=== PATIENT | male | born 1945 | race Caucasian/White ===

== ENCOUNTER → 2020-10-10 | Outpatient (CLI) | payer MEDICARE ==
--- NOTE | 2020-10-10 13:02 | MR ---
EXAMINATION TYPE: MR knee LT wo con DATE OF EXAM: 10/10/2020 COMPARISON: 09/16/2020 left knee HISTORY: Left knee pain TECHNIQUE: Multiplanar, multisequence imaging of the lefy knee is performed without IV contrast. FINDINGS: MEDIAL MENISCUS: There is a macerated medial meniscal tear with extensive adjacent cystic changes. LATERAL MENISCUS: There is an oblique tear of the posterior horn and body of the lateral meniscus. CRUCIATE LIGAMENTS: The anterior cruciate ligament is completely torn. The posterior cruciate ligamen t is intact. COLLATERAL LIGAMENTS: The medial collateral ligament and lateral collateral ligament complex are inta ct and unremarkable. EXTENSOR MECHANISM: Visualized quadriceps and patellar tendons are intact. EFFUSION: No significant suprapatellar joint effusion. POPLITEAL CYST: No popliteal/garcia cyst. CARTILAGE: There are full-thickness articular cartilage defects of the medial femoral condyle and med ial tibial plateau (grade 4) with subchondral marrow edema. There are partial-thickness articular car tilage defects of the lateral femoral condyle and lateral tibial plateau (grade is 2-3). There are pa rtial-thickness articular cartilage defects of the patella (grade 2). BONE MARROW SIGNAL: No focal abnormal marrow signal is appreciated. OTHER: No additional significant abnormality is appreciated. IMPRESSION: 1. Complete anterior cruciate ligament tear. 2. Macerated medial meniscal tear with adjacent cystic changes. 3. Oblique tear of the posterior horn and body of the lateral meniscus. 4. Tricompartmental articular cartilage defects.
== END | disposition home or self-care (01) ==
LOC: RADMRIMAIN 11:00
PROVIDERS: ATTEND Orthopaedic Surgery
DX: S83.512A Sprain of anterior cruciate ligament of left knee, initial encounter (principal); M23.332 Other meniscus derangements, other medial meniscus, left knee; M23.362 Other meniscus derangements, other lateral meniscus, left knee; M23.92 Unspecified internal derangement of left knee

== ENCOUNTER → 2020-11-10 | Outpatient (CLI) | payer MEDICARE ==
[2020-11-10 10:45] LABS: Basophils # (A) 0.1 k/uL (0-0.2); Basophils % (A) 1 %; Eosinophils # (A) 0.3 k/uL (0-0.7); Eosinophils % (A) 5 %; HGB 18.3 gm/dL (13.0-17.5); Lymphocytes # (A) 1.6 k/uL (1.0-4.8); Lymphocytes % (A) 23 %; MCH 30.8 pg (25.0-35.0); MCHC 32.4 g/dL (31.0-37.0); Mean Platelet Volume 6.8; Monocytes # (A) 0.5 k/uL (0-1.0); Monocytes % (A) 7 %; Neutrophils # (A) 4.2 k/uL (1.3-7.7); Neutrophils % (A) 62 %; Platelet Count 194 k/uL (150-450); RBC 5.95 m/uL (4.30-5.90); RDW 15.2 % (11.5-15.5); WBC 6.8 k/uL (3.8-10.6)
[2020-11-10 10:48] LABS: HCT 56.6 % (39.0-53.0)
[2020-11-10 10:56] LABS: Potassium 4.4 mmol/L (3.5-5.1)
== END | disposition home or self-care (01) ==
LOC: LABWHC1 09:46
PROVIDERS: ATTEND Orthopaedic Surgery
DX: Z01.818 Encounter for other preprocedural examination (principal); M23.92 Unspecified internal derangement of left knee
CPT/HCPCS: 36415; 80051; 85025; 93005

== ENCOUNTER 2020-11-13 08:35 | Day surgery (SDC) | payer MEDICARE ==
[2020-11-11 09:16] VITALS: BMI 28.3
--- NOTE | 2020-11-12 21:22 | HP ---
HISTORY AND PHYSICAL REASON FOR ADMISSION: Surgery scheduled for 11/13/2020 HISTORY OF PRESENT ILLNESS: Jermain Miller is a 75-year-old gentleman seen with progressive left knee pain. We discussed options for treatment. He elected to proceed with arthroscopy. Consent was obtained. PAST MEDICAL HISTORY: Noncontributory. SURGICAL HISTORY: Left knee arthroscopy. MEDICATIONS: Vitamins. ALLERGIES: DOXYCYCLINE. SOCIAL HISTORY: Denies tobacco use. PHYSICAL EVALUATION OF THE LEFT KNEE: Range of motion is -2/3-130. Mild effusion. Tenderness medial joint line. Positive medial Tono's. Ligaments stable. Hip rotation without pain. Distal neurovascular exam is intact. RADIOGRAPHS: Left knee radiographs revealed moderate osteoarthritis. Left knee MRI revealed medial and lateral meniscal tears, ACL tear, and osteoarthritic changes. IMPRESSION: 1. Internal derangement of left knee with medial and lateral meniscal tears. 2. Left knee ACL tear. PLAN: Left knee arthroscopy with partial meniscectomy and debridement. Surgery scheduled for 11/13/2020. MMODL / IJN: [id number] /
[~2020-11-13 08:35] MED LIST: DEXAMETHASONE SOD PHOSPHATE 4 MG/ML 1 ML VIAL IV ONE; HYDROmorphone 0.5 MG/0.5 ML SYRINGE IVP PRN; MIDAZOLAM 2 MG/2 ML VIAL IV PRN; ONDANSETRON 4 MG/2 ML VIAL IVP ONE
[2020-11-13 09:04] VITALS: RESP 16
[2020-11-13] MEDS: LACTATED RINGERS 1,000 ML IV SCH ×2 (09:13→10:49)
[2020-11-13] MEDS ORDERED: MIDAZOLAM 2 MG/2 ML VIAL ONE (10:49)
[2020-11-13] MEDS ORDERED: LIDOCAINE 1% INJ 10MG/ML (20 ML MDV) ONE (10:49)
[2020-11-13] MEDS ORDERED: SUCCINYLCHOLINE CHLORIDE 100 MG/5 ML SYR IV ONE (10:49)
[2020-11-13] MEDS ORDERED: fentaNYL (PF) 50 MCG/ML 2 ML AMP ONE (10:49)
[2020-11-13] MEDS ORDERED: KETOROLAC 15 MG/ML 1 ML VIAL ONE (10:49)
[2020-11-13] MEDS ORDERED: PROPOFOL 10 MG/ML 20 ML VIAL IV ONE (10:49)
[2020-11-13] MEDS ORDERED: BUPIVACAINE (PF) 0.25% 30 ML VIAL SQ ONE (11:10)
[2020-11-13] MEDS ORDERED: LACTATED RINGERS 1,000 ML IV ONE (11:36)
--- NOTE | 2020-11-13 11:45 | P.OP ---
Date of Procedure: 11/13/20 Preoperative Diagnosis: Internal derangement left knee Postoperative Diagnosis: 1. Tear medial meniscus left knee 2. ACL tear left knee 3. Reactive synovitis medial, lateral and suprapatellar compartments left knee 4. 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 Arthroscopic partial medial meniscectomy left knee 2. Arthroscopic debridement ACL tear left knee 3. Arthroscopic partial synovectomy medial, lateral and suprapatellar compartments left knee Anesthesia: GETA, local Surgeon: Ashwin Hoffman Estimated Blood Loss (ml): 7 Pathology: none sent Condition: stable Disposition: PACU Indications for Procedure: 75-year-old patient seen with progressive left knee pain. After having treatment options discussed, he elected to proceed with arthroscopy. Operative Findings: See description of procedure Description of Procedure: Patient was taken to the operative suite. Patient underwent a general anesthetic by the department of anesthesia. Patient was given preoperative anti biotics. The left lower extremity was placed in a well-padded arthroscopic leg bess. The left leg was prepped and draped in the normal sterile orthopedic fashion. A lateral parapatellar and suprapatellar incision was made. Trochars were inserted. Arthroscopy was initiated. Suprapatellar pouch revealed diffuse thick reactive synovitis. The patellofemoral joint appeared to articulate congruently. There was grade 2/3 chondromalacia of the patella with no osteochondral tears present. The scope was guided into the medial gutter. No loose bodies or plica were identified. The scope was then guided into the medial compartment. A medial parapatellar incision was made. Trocar inserted followed by probe. There was a complex tear involving the posterior horn and midbody medial meniscus. There were grade 4 chondromalacia changes of the medial femoral condyle and tibial plateau with exposed bone on both sides([id number] arthritis). There was thick reactive synovitis anteriorly. I performed a partial medial meniscectomy getting down to stable meniscal tissue. I performed a partial synovectomy decompressing the thick reactive synovitis. The residual meniscus was probed and it was found to be stable. There was good decompression of synovitis. Scope and probe were then guided into the intercondylar notch. There was an ACL tear present. It appeared to be degenerative. I introduced a motorized shaver and debrided that out. The PCL was probed and found to be stable.. The scope and probe were then guided into lateral compartment. The lateral meniscus revealed some mild superficial fraying. There were grade 1/2 chondromalacia changes of the lateral compartment with no tears. There was thick reactive synovitis anteriorly. I introduced a motorized shaver and debrided out the superficial fraying of the lateral meniscus. I now performed a partial synovectomy decompressing the thick reactive synovitis. The shaver was removed. There was good decompression of the synovitis. The scope was in guided back into the suprapatellar compartment. I introduced a motorized shaver into the suprapatellar compartment. I debrided some piecemeal fragments of meniscus I encountered. I performed a partial synovectomy. Shaver was removed. There was good decompression of the synovitis. Instruments were now removed from the joint. The joint was infiltrated with .25% Marcaine. Steri-Strips were applied to the portal sites. Sterile dressings were applied. The patient was placed into a ZOILA hose. No tourniquet was utilized. The patient was awakened, transferred to a bed and taken to recovery stable satisfactory condition.
[2020-11-13 11:48] VITALS: TEMP 96.8
[2020-11-13] MEDS ORDERED: traMADol 50 MG TAB PO ONE (13:11)
[2020-11-13] MEDS ORDERED: traMADol 50 MG TAB ONE (13:11)
[2020-11-13 13:51] VITALS: BP 141/86; PULSE 75
== END 2020-11-13 13:51 | disposition home or self-care (01) ==
LOC: OR 08:35
PROVIDERS: ATTEND Orthopaedic Surgery
DX: S83.242A Other tear of medial meniscus, current injury, left knee, initial encounter (principal); S83.512A Sprain of anterior cruciate ligament of left knee, initial encounter; Z88.1 Allergy status to other antibiotic agents; T75.3XXA Motion sickness, initial encounter
CPT/HCPCS: 29876; 29881; J2250; J1100; J2405; J2001; J3010; J1885; J0330; J2704

== ENCOUNTER 2022-06-16 11:58 | Inpatient (IN) | payer MEDICARE ==
--- NOTE | 2022-06-16 12:51 | ED ---
Abdominal Pain HPI - General Chief Complaint: Abdominal Pain Stated Complaint: constipated, abd pain Time Seen by Provider: 06/16/22 12:25 Source: patient, family (spouse), RN notes reviewed Mode of arrival: ambulatory Limitations: no limitations - History of Present Illness Initial Comments: Patient is a 69-year-old male presenting to the emergency room with complaints of abdominal pain that has been intermittent in nature ongoing for at least 2 days possibly longer. He reports having nausea with vomiting. His last episode of vomiting was yesterday. He states that he has been constipated and taking laxatives for his constipation which is resulting in liquid stool which he believes is coming out around solid stool that is constipated. He was evaluated yesterday at urgent care and urgent care encouraged him to present to the emergency room for further evaluation. He denies any other complaints or concerns including any chest pain, shortness of breath, bladder mucus in his vomit or stool, headache, dizziness, fevers or chills.His only significant past medical history is for osteoarthritis which she takes tramadol as needed for. - Related Data Home Medications Medication Instructions Recorded Confirmed Multivitamins, Thera [Multivitamin 1 tab PO DAILY 11/11/20 06/16/22 (formulary)] Maxivision 1 tab PO DAILY 06/16/22 06/16/22 Allergies Allergy/AdvReac Type Severity Reaction Status Date / Time doxycycline Allergy Swelling Verified 06/16/22 12:53 Penicillins Allergy Unknown Verified 06/16/22 12:53 Review of Systems ROS Statement: Those systems with pertinent positive or pertinent negative responses have been documented in the HPI. ROS Other: All systems not noted in ROS Statement are negative. Past Medical History Past Medical History: Osteoarthritis (OA) History of Any Multi-Drug Resistant Organisms: None Reported Past Surgical History: No Surgical Hx Reported Past Psychological History: No Psychological Hx Reported Smoking Status: Never smoker Past Alcohol Use History: None Reported Past Drug Use History: None Reported General Exam - General Exam Comments Initial Comments: GENERAL: No acute distress, well developed, well nourished. HEENT: Normocephalic, atraumatic. Pupils equal, round, reactive to light. Moist mucous membranes. LUNGS: No respiratory distress. Clear to auscultation, no adventitious sounds, no use of accessory muscles. HEART: Regular rate and rhythm without murmur, rub, or gallop. ABDOMEN: Normal bowel sounds. Soft, non-distended, rounded abdomen. Mild tender ness bilateral upper quadrants no tenderness lower quadrants. No guarding or rebound tenderness. BACK: Normal inspection. EXTREMITIES: No edema. No tenderness. Moves all extremities. NEUROLOGIC: Alert & oriented x 3. CN II-XII grossly intact. PSYCHIATRIC: Normal affect and behavior. DERMATOLOGIC: Skin intact, without rashes or lesions noted. Limitations: no limitations Course Vital Signs 06/16/22 12:09 Temperature 97.5 F L Pulse Rate 94 Respiratory 20 Rate Blood Pressure 165/99 O2 Sat by Pulse 95 Oximetry Medical Decision Making - Medical Decision Making Was pt. sent in by a medical professional or institution (, PA, CARDIAC CATHETERIZATION TECHNOLOGIST, urgent care, hospital, or residential...) When possible be specific @ -No Did you speak to anyone other than the patient for history (EMS, parent, family, police, friend...)? What history was obtained from this source @ -Spouse Did you review nursing and triage notes (agree or disagree)? Why? @ -I reviewed and agree with nursing and triage notes Were old charts reviewed (outside hosp., previous admission, EMS record, old EKG, old radiological studies, urgent care reports/EKG's, residential records)? Report findings @ -Yes, I reviewed previous H&P on file from 2018 Differential Diagnosis (chest pain, altered mental status, abdominal pain women, abdominal pain men, vaginal bleeding, weakness, fever, dyspnea, syncope, headache, dizziness, GI bleed, back pain, seizure, CVA, palpatations, mental health, musculoskeletal)? @ -Differential Abdominal Pain Men: Appendicitis, cholecystitis, diverticulosis, ischemic bowel, pancreatitis, hepatitis, UTI, gastroenteritis, AAA, incarcerated hernia, bowel obstruction, constipation, inflammatory bowel, hepatitis, peptic ulcer disease, splenic infarction, perforated viscus, testicular torsion, this is not meant to be an all-inclusive list EKG interpreted by me (3pts min.). @ -None done X-rays interpreted by me (1pt min.). @ -KUB: prominent bowel loops concerning for dilatation indicating ileus versus partial small bowel obstruction. CT interpreted by me (1pt min.). @ -computed tomography scan abdomen and pelvis without contrast: large right renal cysts, hydronephrosis to right kidney with right ureter calculi. No evidence of bowel obstruction free air or free fluid in the abdomen. U/S interpreted by me (1pt. min.). @ -None done What testing was considered but not performed or refused? (CT, X-rays, U/S, labs )? Why? @ -None What meds were considered but not given or refused? Why? @ -Anti-medics offered but declined reports nausea stable at this time Did you discuss the management of the patient with other professionals (radu [place]is i.e. , PA, CARDIAC CATHETERIZATION TECHNOLOGIST, lab, RT, psych nurse, social studies teacher, veterinary radiologist, teacher, housing officer, rn field case manager)? Give summary @ -yes, spoke with Dr. Jenn stout for urology in regards to obstructive hydronephrosis along with large renal cyst with masslike effect. He advised admission to medicine with cough consult to urology and he will see patient in morning. Spoke with Dr. Haley stout for [place] physicians in regards to Dr. Valdez's recommendation for admission to medicine for further evaluation and treatment for AK I and obstructive nephrolithiasis. He is accepting of admission and declines any further orders at this time. Was smoking cessation discussed for >3mins.? @ -No Was critical care preformed (if so, how long)? @ -No Were there social determinants of health that impacted care today? How? (Homelessness, low income, unemployed, alcoholism, drug addiction, transportation, low edu. Level, literacy, decrease access to med. care, [facility], rehab)? @ -No Was there de-escalation of care discussed even if they declined (Discuss DNR or withdrawal of care, Hospice)? DNR status @ -No What co-morbidities impacted this encounter? (DM, HTN, Smoking, COPD, CAD, Cancer, CVA, ARF, Chemo, Hep., AIDS, mental health diagnosis, sleep apnea, morbid obesity)? @ -Osteoarthritis on pain medication Was patient admitted / discharged? Hospital course, mention meds given and rout e, prescriptions, significant lab abnormalities, going to OR and other pertinent info. @ -77-year-old male presenting to the emergency room with intermittent abdominal pain ongoing for 2 days with occasional nausea and vomiting along with diarrhea around constipated stool. Will obtain KUB to evaluate stool burden if evidence of stool impaction/constipation determined will proceed accordingly. KUB demonstrated elevated dilatation concerning for partial small bowel obstruction versus ileus. Will proceed with obtaining laboratory studies along with computed tomography scan of the abdomen. Laboratory studies CBC demonstrates elevated neutrophil 9.0 WBC high normal at 10.6 which is above his baseline normal hemoglobin CMP demonstrates elevated BUN and creatinine unknown baseline per patient is typically normal. BUN 37 creatinine 1.26 electrolytes normal AST ALT and alkaline phosphate normal lactic acid normal 1.4 bilirubin, 1.2 glucose slightly elevated 118. Due to elevation and BUN and creatinine will change computed tomography scan from with contrast 2 without and give 1 L fluid bolus. Will keep nothing by mouth. Computed tomography scan reveals a large right renal cysts and mild right hydronephrosis. No free air in abdomen or evidence of bowel obstruction. In the setting of pain with GRIFFIN and hydronephrosis with obstructing renal calculi spoke with urology who advised admission to medical team with urology consult and he would be seen in morning by urology. discussed about findings with patient and spouse at length. Questions and concerns answered. Spoke with Dr. De Leon on for [facility] regarding urology's recommendation for admission and treatment of obstructive uropathy. There excepting of admission and had no further orders at this time. will admit patient in stable condition to medical surgical unit with urology consult under [facility] for further evaluation and treatment for obstructive renal calculi with mild hydronephrosis. Undiagnosed new problem with uncertain prognosis? @ -No Drug Therapy requiring intensive monitoring for toxicity (Heparin, Nitro, Insuli n, Cardizem)? @ -No Were any procedures done? @ -No Diagnosis/symptom? @ -hydronephrosis with obstructed right ureter urinary stone and mild GRIFFIN Acute, or Chronic, or Acute on Chronic? @ -acute Uncomplicated (without systemic symptoms) or Complicated (systemic symptoms)? @ -Uncomplicated Side effects of treatment? @ -No Exacerbation, Progression, or Severe Exacerbation? @ -No Poses a threat to life or bodily function? How? (Chest pain, USA, ME, pneumonia, PE, COPD, DKA, ARF, appy, cholecystitis, CVA, Diverticulitis, Homicidal, S uicidal, threat to staff... and all critical care pts) @ -yes. Case discussed with Dr. Bradley. - Lab Data Result diagrams: 06/16/22 14:05 06/16/22 14:05 Lab Results 06/16/22 06/16/2206/16/23 Range/Units 14:05 14:05 14:05 WBC 10.6 (3.8-10.6) k/uL RBC 5.82 (4.30-5.90) m/uL Hgb 17.3 (13.0-17.5) gm/dL Hct 51.0 (39.0-53.0) % MCV 87.6 (80.0-100.0) fL MCH 29.7 (25.0-35.0) pg MCHC 33.9 (31.0-37.0) g/dL RDW 14.8 (11.5-15.5) % Plt Count 186 (150-450) k/uL MPV 6.8 Neutrophils % 86 % Lymphocytes % 7 % Monocytes % 6 % Eosinophils % 0 % Basophils % 0 % Neutrophils # 9.0 H (1.3-7.7) k/uL Lymphocytes # 0.8 L (1.0-4.8) k/uL Monocytes # 0.6 (0-1.0) k/uL Eosinophils # 0.0 (0-0.7) k/uL Basophils # 0.0 (0-0.2) k/uL Sodium 139 (137-145) mmol/L Potassium 4.1 (3.5-5.1) mmol/L Chloride 101 (98-107) mmol/L Carbon Dioxide 29 (22-30) mmol/L Anion Gap 9 mmol/L BUN 37 H (9-20) mg/dL Creatinine 1.26 H (0.66-1.25) mg/dL Est GFR (CKD-EPI)AfAm 63 (>60 ml/min/1.73 sqM) Est GFR (CKD-EPI)NonAf 54 (>60 ml/min/1.73 sqM) Glucose 118 H (74-99) mg/dL Plasma Lactic Acid Shalom 1.4 (0.7-2.0) mmol/L Calcium 9.7 (8.4-10.2) mg/dL Total Bilirubin 1.2 (0.2-1.3) mg/dL AST 36 (17-59) U/L ALT 47 (4-49) U/L Alkaline Phosphatase 66 (38-126) U/L Total Protein 7.8 (6.3-8.2) g/dL Albumin 4.8 (3.5-5.0) g/dL Amylase 58 (30-110) U/L Lipase 40 (23-300) U/L Disposition Clinical Impression: Hydronephrosis with urinary obstruction due to renal calculus Disposition: ADMITTED IP TO THIS HOSP Condition: Stable Time of Disposition: 16:43
--- NOTE | 2022-06-16 12:58 | XR ---
EXAMINATION TYPE: XR KUB DATE OF EXAM: 06/16/2022 COMPARISON: NONE HISTORY: Pain TECHNIQUE: One view abdominal series FINDINGS: The osseous structures are intact. The bowel gas pattern is nonspecific. There are dilated bowel loo ps in the upper abdomen. Curvature of the spine with scoliosis and degenerative changes. Evidence of previous prostate procedure. Chronic appearing deformity of the right superior pubic ramus. Sclerosis nonspecific overlying the SI joint on the left suggestive of sacroiliitis. Nonspecific sclerosis rig ht sacrum. Lung bases are clear. IMPRESSION: 1. Nonspecific abdomen. A prominent or dilated bowel loops in the upper abdomen correlate for ileus or partial obstruction.
[2022-06-16 14:28] LABS: Albumin 4.8 g/dL (3.5-5.0); Calcium 9.7 mg/dL (8.4-10.2); Potassium 4.1 mmol/L (3.5-5.1); Total Bilirubin 1.2 mg/dL (0.2-1.3); Total Protein 7.8 g/dL (6.3-8.2)
[2022-06-16 14:40] LABS: Basophils % (A) 0 %; Eosinophils % (A) 0 %; HGB 17.3 gm/dL (13.0-17.5); Lymphocytes # (A) 0.8 k/uL (1.0-4.8); Lymphocytes % (A) 7 %; MCH 29.7 pg (25.0-35.0); MCHC 33.9 g/dL (31.0-37.0); MCV 87.6 fL (80.0-100.0); Mean Platelet Volume 6.8; Monocytes # (A) 0.6 k/uL (0-1.0); Monocytes % (A) 6 %; Neutrophils % (A) 86 %; Platelet Count 186 k/uL (150-450); RBC 5.82 m/uL (4.30-5.90); RDW 14.8 % (11.5-15.5); WBC 10.6 k/uL (3.8-10.6)
[2022-06-16] MEDS ORDERED: SODIUM CHLORIDE 0.9% 1,000 ML IV STA (14:52)
--- NOTE | 2022-06-16 15:45 | CT ---
EXAMINATION TYPE: CT abdomen pelvis wo con DATE OF EXAM: 06/16/2022 HISTORY: Bilateral flank pain. CT DLP: 980.4 mGycm. Automated Exposure Control for Dose Reduction was Utilized. TECHNIQUE: CT scan of the abdomen and pelvis is performed without oral or IV contrast. COMPARISON: NONE FINDINGS: Within the limitations of a non-contrast study, the following observations are made. LUNG BASES: No significant abnormality is appreciated. LIVER/GB: Liver is diffusely low dense consistent with diffuse fatty infiltration. There is 2.5 cm si mple appearing thin-walled cyst centrally in the liver axial image 34. Additional subcentimeter low d ense lesion axial image 34 is too small to further characterize but is presumed benign. PANCREAS: No significant abnormality is seen. SPLEEN: No significant abnormality is seen. ADRENALS: No significant abnormality is seen. KIDNEYS: No left-sided renal calculi or hydronephrosis. There is 2.0 cm simple appearing thin-walled cyst laterally in the mid to lower pole level left kidney coronal image 64. There is large exophytic thin-walled cyst from the lower pole right kidney measuring approximately 13 x 12 x 14 cm axial image 78 and coronal image 57 with local mass effect. There is mild right-sided h ydronephrosis. There is suspected obstructing mid right ureter calculus measuring 5 to 6 mm in size a xial image 101. No intraluminal calculi in the poorly distended bladder. BOWEL: Some diverticula in the left and sigmoid colon are present. No CT evidence for acute diverticu litis. GENITAL ORGANS: Prostate gland upper limits of normal in size with some anterior calcifications. LYMPH NODES: No greater than 1cm abdominal or pelvic lymph nodes are appreciated. OSSEOUS STRUCTURES: [id number] disc space narrowing at L2-L3 level with vacuum disc phenomenon. Similar findings at L5-S1 level. Some sclerosis and disc space narrowing at the T11-T12 level. OTHER: No significant additional abnormality is seen. IMPRESSION: Mild right-sided hydronephrosis due to suspected 5 to 6 mm obstructing right mid ureter c alculus. Large exophytic thin-walled cyst with local mass effect may also be contributing to the mild right-sided hydronephrosis.
[2022-06-16] MEDS ORDERED: NALOXONE 0.4 MG/ML 1 ML VIAL IV PRN (16:41)
[2022-06-16] MEDS ORDERED: MORPHINE SULFATE 2 MG/ML SYRINGE IVP PRN (17:46)
[2022-06-16] MEDS ORDERED: ONDANSETRON 4 MG/2 ML VIAL IVP PRN (17:48)
--- NOTE | 2022-06-16 17:56 | P.HPIM ---
History of Present Illness H&P Date: 06/16/22 Patient is a 77-year-old male with no significant past medical history presenting with abdominal, flank pain, and constipation. He claims that his symptoms started about 2 days ago, he was nonseptic, he started developing right back pain, and now he has pain around his groin in a bandlike fashion gradient across. He denies any hematuria, or other urinary complaints. He did notice decrease in appetite, increased nausea and did have one episode of emesis yesterday. He has not been having regular bowel movements, his last, was seen yesterday. He does feel bloated as well. He denies any chest pain, shortness of breath, palpitations, lightheadedness, fevers, chills, sick contacts, or travel history. He has a history of renal stone about 20 years ago. He does follow with a urologist, was last seen 3 years ago for urinary incontinence. In the ED, he was afebrile, pulse 94, respiratory rate of 20, blood pressure 165/99, saturating at 95%. Laboratory workup showed unremarkable CBC, CMP showed BUN 37, creatinine 1.6, glucose 118, lactate 1.4, lipase 40. KUB showed prominent dilated bowel loops concerning for ileus or partial obstruction. CT abdomen and pelvis showed mild right-sided hydronephrosis due to suspected 5- 6 mm obstructing right mid ureter calculus. Large exophytic thin-walled cyst with local mass effect also contributing to mild right-sided hydronephrosis, [id number] x 12 x 14 cm. Patient being admitted for further workup and urology consult. Pertinent positives and negatives as discussed in HPI, a complete review of systems was performed and all other systems are negative. Patient seen and examined at bedside. Vital signs reviewed General: nontoxic, appears uncomfortable, appears at stated age Derm: warm, dry Head: atraumatic, normocephalic, symmetric Eyes: EOMI, no lid lag, anicteric sclera, pupils equal round reactive to light ENT: Nose and ears atraumatic Neck: No thyromegaly, supple Mouth: no lip lesion, mucus membranes moist Cardiovascular: S1S2 reg, no murmur, no edema Lungs: clear to auscultation bilateral, no rhonchi, no rales, no wheeze, no accessory muscle use Abdominal: soft, nontender to palpation, no guarding, no appreciable organomegaly Ext: no gross muscle atrophy, muscle strength muscle strength 5 out of 5 in all 4 extremities, no contractures Neuro: CN II-XII grossly intact Psych: Alert, oriented, appropriate affect Assessment/Plan: Active: Right-sided hydronephrosis, mild Obstructing right mid ureter calculus 5-6 mm Large exophytic thin-walled right renal cyst Acute kidney injury Elevated BUN - KUB personally interpreted, shows dilated bowel loops involving the right and transverse colon - CT abdomen and pelvis report reviewed: mild right-sided hydronephrosis due to suspected 5- 6 mm obstructing right mid ureter calculus. Large exophytic thin- walled cyst with local mass effect also contributing to mild right-sided hydronephrosis, measuring 13 x 12 x 14 cm. -Started normal saline 130 mL an hour, also ordered 0.4 mg tamsulosin daily -Pain controlled with Tylenol as needed, [place] as needed for [id number] pain, morphine 2 mg IV every 4 hours as needed for her severe pain -Urology consulted -Unknown baseline creatinine, continue to monitor urine output, repeat BMP tomorrow -Acute Kidney injury likely has a component of prerenal and postrenal The patient is admitted with an anticipated greater than 2 midnight stay as inpatient status for evaluation of obstructing ureteral calculus, large exophytic renal cyst. He requires close monitoring of his renal function as well as urology consult. Prognosis guarded. Surrogate decision-maker: Spouse CODE STATUS: Full code DVT prophylaxis: Subcu heparin Anticipated discharge date: Pending clinical course Anticipated discharge place: Pending clinical course A total of 55 minutes was spent on the care of this complex patient more than 50% of the time was spent in counseling and care coordination. Past Medical History Past Medical History: Osteoarthritis (OA) History of Any Multi-Drug Resistant Organisms: None Reported Past Surgical History: No Surgical Hx Reported Past Psychological History: No Psychological Hx Reported Smoking Status: Never smoker Past Alcohol Use History: None Reported Past Drug Use History: None Reported Medications and Allergies Home Medications Medication Instructions Recorded Confirmed Type Multivitamins, Thera [Multivitamin 1 tab PO DAILY 11/11/20 06/16/22 History (formulary)] Maxivision 1 tab PO DAILY 06/16/22 06/16/22 History Allergies Allergy/AdvReac Type Severity Reaction Status Date / Time doxycycline Allergy Swelling Verified 06/16/22 12:53 Penicillins Allergy Unknown Verified 06/16/22 12:53 Physical Exam Vitals: Vital Signs Temp Pulse Resp BP Pulse Ox 06/16/22 12:09 97.5 F L 94 20 165/99 95 Intake and Output 06/16/22 06/16/22 06/16/22 06:59 14:59 22:59 Other: Voiding Method Toilet Weight 98.883 kg Results CBC & Chem 7: 06/16/22 14:05 06/16/22 14:05 Labs: Abnormal Lab Results - Last 24 Hours (Table) 06/16/22 06/16/22 Range/Units 14:05 14:05 Neutrophils # 9.0 H (1.3-7.7) k/uL Lymphocytes # 0.8 L (1.0-4.8) k/uL BUN 37 H (9-20) mg/dL Creatinine 1.26 H (0.66-1.25) mg/dL Glucose 118 H (74-99) mg/dL
[2022-06-16] MEDS: TAMSULOSIN 0.4 MG CAP.ER.24H PO SCH (18:20)
[2022-06-16] MEDS: SODIUM CHLORIDE 0.9% 1,000 ML IV SCH (18:21)
[2022-06-16] MEDS: ACETAMINOPHEN TAB 325 MG TAB PO PRN (18:26)
[2022-06-16] MEDS: HYDROcodone/APAP 5-325MG 1 EACH TAB PO PRN (22:03)
[2022-06-16] MEDS: polyethylene glycoL 3350 17 GM POWD.PACK PO SCH (22:16)
[2022-06-17] MEDS: HEPARIN SODIUM,PORCINE/PF 5,000 UNIT/0.5 ML SYRINGE SQ SCH ×4 (01:15→22:58)
[2022-06-17] MEDS: SODIUM CHLORIDE 0.9% 1,000 ML IV SCH ×3 (02:05→16:49)
[2022-06-17] MEDS: ACETAMINOPHEN TAB 325 MG TAB PO PRN ×2 (05:59→13:30)
[2022-06-17 08:41] LABS: Basophils # (A) 0.03 X 10*3/uL (0.00-0.10); Basophils % (A) 0.3 %; Eosinophils # (A) 0.06 X 10*3/uL (0.04-0.35); Eosinophils % (A) 0.5 %; HCT 47.3 % (39.6-50.0); HGB 15.4 g/dL (13.0-17.0); Immature Grans, Automated 0.8 %; Lymphocytes # (A) 1.08 X 10*3/uL (0.90-5.00); Lymphocytes % (A) 9.7 %; MCH 29.3 pg (27.0-32.0); MCHC 32.6 g/dL (32.0-37.0); MCV 90.1 fL (80.0-97.0); Mean Platelet Volume 8.9 fL (9.5-12.2); Monocytes # (A) 1.15 X 10*3/uL (0.20-1.00); Monocytes % (A) 10.3 %; NRBC Per 100 WBC 0 /100 WBCS (0.0-0.0); Neutrophils # (A) 8.75 X 10*3/uL (1.80-7.70); Neutrophils % (A) 78.4 %; Platelet Count 170 X 10*3/uL (140-440); RBC 5.25 X 10*6/uL (4.40-5.60); RDW 14.6 % (11.5-14.5); WBC 11.16 X 10*3/uL (4.50-10.00)
[2022-06-17 08:50] LABS: African American GFR (CKD) 60.6 (60.0-200.0); Anion Gap 8.5 mmol/L (10.00-18.00); BUN/Creat Ratio 24.69 Ratio (12.00-20.00); Blood Urea Nitrogen 32.1 mg/dL (9.0-27.0); Carbon Dioxide 26.5 mmol/L (20.0-27.5); Magnesium 1.9 mg/dL (1.5-2.4); Non-African American GFR(CKD) 52.3 (60.0-200.0); Potassium 4.4 mmol/L (3.5-5.5)
[2022-06-17] MEDS: HYDROcodone/APAP 5-325MG 1 EACH TAB PO PRN ×2 (09:07→16:35)
--- NOTE | 2022-06-17 11:37 | P.GSCN ---
History of Present Illness Consult date: 06/17/22 Reason for Consult: Obstructive renal calculi, large renal cyst Requesting physician: Ofelia Pfeiffer History of present illness: The patient is a pleasant 77-year-old male with a past medical history of osteoarthritis. He presented to the emergency department on 06/16/22 complaints of abdominal pain with associated nausea and vomiting. Workup in the emergency department included a KUB x-ray which showed prominent or dilated bowel loops in the upper abdomen possible ileus or partial obstruction. Abdomen/pelvis CT without contrast revealed a large exophytic thin-walled cyst from the lower right kidney pole with local mass effect. There is mild right-sided hydronephrosis. There is a suspected obstructing right mid ureteral calculus measuring 5-6 mm in size. No left-sided renal calculi or hydronephrosis. There is a 2.0 cm simple-appearing thin-walled cyst laterally in the mid to lower pole level left kidney. WBC 10.6, hemoglobin 17.3, BUN 37, creatinine 1.26. Review of Systems - Constitutional Reports chills - Cardiovascular Denies chest pain, Denies shortness of breath - Gastrointestinal Reports abdominal pain, Reports constipation, Reports loss of appetite, Reports nausea, Reports vomiting - Genitourinary Reports flank pain, Denies dysuria, Denies hematuria Past Medical History Past Medical History: Osteoarthritis (OA) History of Any Multi-Drug Resistant Organisms: None Reported Past Surgical History: No Surgical Hx Reported Past Psychological History: No Psychological Hx Reported Smoking Status: Never smoker Past Alcohol Use History: None Reported Past Drug Use History: None Reported Medications and Allergies Home Medications Medication Instructions Recorded Confirmed Type Multivitamins, Thera [Multivitamin 1 tab PO DAILY 11/11/20 06/16/22 History (formulary)] Maxivision 1 tab PO DAILY 06/16/22 06/16/22 History Allergies Allergy/AdvReac Type Severity Reaction Status Date / Time doxycycline Allergy Swelling Verified 06/16/22 12:53 Penicillins Allergy Unknown Verified 06/16/22 12:53 Surgical - Exam Vital Signs Temp Pulse Resp BP Pulse Ox 97.5 F L 94 20 165/99 95 06/16/22 12:09 06/16/22 12:09 06/16/22 12:09 06/16/22 12:09 06/16/22 12:09 General: Well developed, well nourished. No acute distress. HEENT: Head is atraumatic, normocephalic. Lungs: Respirations even and nonlabored. On RA Abdomen/GI: Soft, non-distended. Right lower abdominal tenderness and Right flank tenderness to palpitation. : Normal phallus, normal urethral meatus. The scrotum and testes are normal. Skin: Warm and dry Neurologic: Alert and oriented 3, CN II-XII grossly intact. No focal deficits. Psychiatric: Appropriate mood and affect. Results - Labs 06/17/22 04:30 06/17/22 04:30 Abnormal Lab Results - Last 24 Hours (Table) 06/16/22 06/16/22 06/17/22 Range/Units 14:05 14:05 04:30 WBC 11.16 H (4.50-10.00) X 10*3/uL RDW 14.6 H (11.5-14.5) % MPV 8.9 L (9.5-12.2) fL Immature Gran # 0.09 H (0.00-0.04) X 10*3/uL Neutrophils # 9.0 H 8.75 H (1.3-7.7) k/uL Lymphocytes # 0.8 L (1.0-4.8) k/uL Monocytes # 1.15 H (0.20-1.00) X 10*3/uL Anion Gap (10.00-18.00) mmol/L BUN 37 H (9-20) mg/dL Creatinine 1.26 H (0.66-1.25) mg/dL Est GFR (CKD-EPI)NonAf (60.0-200.0) BUN/Creatinine Ratio (12.00-20.00) Ratio Glucose 118 H (74-99) mg/dL 06/17/22 Range/Units 04:30 WBC (4.50-10.00) X 10*3/uL RDW (11.5-14.5) % MPV (9.5-12.2) fL Immature Gran # (0.00-0.04) X 10*3/uL Neutrophils # (1.3-7.7) k/uL Lymphocytes # (1.0-4.8) k/uL Monocytes # (0.20-1.00) X 10*3/uL Anion Gap 8.50 L (10.00-18.00) mmol/L BUN 32.1 H (9-20) mg/dL Creatinine (0.66-1.25) mg/dL Est GFR (CKD-EPI)NonAf 52.3 L (60.0-200.0) BUN/Creatinine Ratio 24.69 H (12.00-20.00) Ratio Glucose 111 H (74-99) mg/dL Diabetes panel 06/16/22 06/17/22 Range/Units 14:05 04:30 Sodium 139 141 (137-145) mmol/L Potassium 4.1 4.4 (3.5-5.1) mmol/L Chloride 101 106 (98-107) mmol/L Carbon Dioxide 29 26.5 (22-30) mmol/L BUN 37 H 32.1 H (9-20) mg/dL Creatinine 1.26 H 1.3 (0.66-1.25) mg/dL Glucose 118 H 111 H (74-99) mg/dL Calcium 9.7 9.0 (8.4-10.2) mg/dL AST 36 (17-59) U/L ALT 47 (4-49) U/L Alkaline Phosphatase 66 (38-126) U/L Total Protein 7.8 (6.3-8.2) g/dL Albumin 4.8 (3.5-5.0) g/dL Calcium panel 06/16/22 06/17/22 Range/Units 14:05 04:30 Calcium 9.7 9.0 (8.4-10.2) mg/dL Albumin 4.8 (3.5-5.0) g/dL Pituitary panel 06/16/22 06/17/22 Range/Units 14:05 04:30 Sodium 139 141 (137-145) mmol/L Potassium 4.1 4.4 (3.5-5.1) mmol/L Chloride 101 106 (98-107) mmol/L Carbon Dioxide 29 26.5 (22-30) mmol/L BUN 37 H 32.1 H (9-20) mg/dL Creatinine 1.26 H 1.3 (0.66-1.25) mg/dL Glucose 118 H 111 H (74-99) mg/dL Calcium 9.7 9.0 (8.4-10.2) mg/dL Adrenal panel 06/16/22 06/17/22 Range/Units 14:05 04:30 Sodium 139 141 (137-145) mmol/L Potassium 4.1 4.4 (3.5-5.1) mmol/L Chloride 101 106 (98-107) mmol/L Carbon Dioxide 29 26.5 (22-30) mmol/L BUN 37 H 32.1 H (9-20) mg/dL Creatinine 1.26 H 1.3 (0.66-1.25) mg/dL Glucose 118 H 111 H (74-99) mg/dL Calcium 9.7 9.0 (8.4-10.2) mg/dL Total Bilirubin 1.2 (0.2-1.3) mg/dL AST 36 (17-59) U/L ALT 47 (4-49) U/L Alkaline Phosphatase 66 (38-126) U/L Total Protein 7.8 (6.3-8.2) g/dL Albumin 4.8 (3.5-5.0) g/dL - Imaging Abdominal x-ray: report reviewed CT scan - abdomen: report reviewed, image reviewed CT scan - pelvis: report reviewed, image reviewed Assessment and Plan Assessment: The patient has a history of a kidney stone approximately 20 years which he passed spontaneously. He denies any history of cancer. He reports having prostate surgery, a urolift, approximately [address] Kessler from [facility]. No urinary hesitancy, he reports having a good stream when voiding but he does experience urgency. The patient reports having right flank and lower back pain that radiates to his right lower abdomen with associated nausea and vomiting. He denies any dysuria or hematuria. The patient denies any pain currently while resting in bed. He states he has pain primarily when he is up moving about. WBC 11.16, serum creatinine 1.3 today. Unknown baseline creatinine. Patient will go to the OR this afternoon for a cystoscopy, right retrograde pyelogram, possible right ureteral stent insertion with . If patient's pain persists will consider consulting IR for renal cyst aspiration. (1) Renal cyst Current Visit: Yes Status: Acute Code(s): N28.1 - CYST OF KIDNEY, ACQUIRED SNOMED Code(s): 025643434 (2) Unspecified hydronephrosis Current Visit: Yes Status: Acute Code(s): N13.30 - UNSPECIFIED HYDRONEPHROSIS SNOMED Code(s): 68886189 (3) Calculus of ureter Current Visit: Yes Status: Acute Code(s): N20.1 - CALCULUS OF URETER SNOMED Code(s): 88134289 Plan: - Continue IVF - Continue current pain regimen - UA with reflux pending - Continue Flomax - Monitor creatinine - Keep patient NPO - OR this afternoon for a cystoscopy, right retrograde pyelogram, right ureteral stent insertion Thank you for this consultation Impression and plan of care have been directed as dictated by the signing physician. Shirley Beckman nurse practitioner acting as scribe for signing physician. Shirley Beckman [facility] Palliative Care/Urology Spectralink [id number] Email: [email or web address] I have personally seen and examined the patient, reviewed the documentation and agree with the assessment and plan as written. Number of minutes spent on the visit: 40. Kendall Barajas MD Time with Patient: Greater than 30
--- NOTE | 2022-06-17 13:06 | P.PN ---
Subjective Progress Note Date: 06/17/22 Hospital Course: 77-year-old male with no significant past medical history presenting with abdominal, flank pain, and constipation. In the ED, he was afebrile, pulse 94, respiratory rate of 20, blood pressure 165/99, saturating at 95%. Laboratory workup showed unremarkable CBC, CMP showed BUN 37, creatinine 1.6, glucose 118, lactate 1.4, lipase 40. KUB showed prominent dilated bowel loops concerning for ileus or partial obstruction. CT abdomen and pelvis showed mild right-sided h ydronephrosis due to suspected 5- 6 mm obstructing right mid ureter calculus. Large exophytic thin-walled cyst with local mass effect also contributing to mild right-sided hydronephrosis, [id number] x 12 x 14 cm. Patient being admitted for further workup and urology consult. Patient pending intervention today. Subjective: Patient seen and examined at bedside. No acute events overnight. Continues to have back pain, and abdominal pain, but improving. He denies any chest pain, shortness of breath, nausea, vomiting, diarrhea, constipation. He continues to have urine output. Pertinent positives and negatives as discussed above, a complete review of systems was performed and all other systems are negative. Vitals Signs Reviewed. General: nontoxic, no distress, appears at stated age Derm: warm, dry Head: atraumatic, normocephalic, symmetric Eyes: EOMI, no lid lag, anicteric sclera Mouth: no lip lesion, mucus membranes moist Cardiovascular: S1S2 reg, no murmur Lungs: CTA bilateral, no rhonchi, no rales , no accessory muscle use Abdominal: soft, nontender to palpation, no guarding, no appreciable organomegaly Ext: no gross muscle atrophy, no edema, no contractures Neuro: CN II-XI grossly intact, no focal neuro deficits Psych: Alert, oriented, appropriate affect Data Reviewed Today: Pertinent Labs: WBC 11.16, hemoglobin 15.4, platelet 170, sodium 141, potassium 4.4 magnesium 1.9, creatinine 1.3 Assessment and Plan: Due to obstructive renal stone, patient needs acute surgical intervention. Will need close follow-up of renal function following surgery. Prognosis is guarded. Active: Right-sided hydronephrosis, mild Obstructing right mid ureter calculus 5-6 mm Large exophytic thin-walled right renal cyst Leukocytosis Acute kidney injury, possibly chronic kidney disease Elevated BUN -Urology note reviewed: Pending intervention today -Continue normal saline at 1 30 mL an hour, tamsulosin 0.4 mg daily -Pain controlled with Tylenol as needed, [place] as needed for ixjrnkev-xk-yxjelg pain, morphine 2 mg IV every 4 hours as needed for her severe pain -Renal function remains stable, may possibly have chronic kidney disease DVT ppx: Subcu heparin Code status: Full code Anticipated discharge place: Pending clinical course Anticipated discharge time: Pending clinical course Objective - Vital Signs Vital signs: Vital Signs Temp 98 F 06/17/22 07:00 Pulse 93 06/17/22 07:00 Resp 18 06/17/22 07:00 BP 115/67 06/17/22 07:00 Pulse Ox 95 06/17/22 07:00 FiO2 Intake & Output 06/16/22 06/17/22 06/17/22 18:59 06:59 18:59 Output Total 700 Balance -700 Weight 98.883 kg 98.883 kg Output: Urine 700 Other: Voiding Method Toilet Toilet Toilet Urinal Urinal # Voids 2 # Bowel Movements 1 - Labs CBC & Chem 7: 06/17/22 04:30 06/17/22 04:30 Labs: Abnormal Lab Results - Last 24 Hours (Table) 06/16/22 06/16/22 06/17/22 Range/Units 14:05 14:05 04:30 WBC 11.16 H (4.50-10.00) X 10*3/uL RDW 14.6 H (11.5-14.5) % MPV 8.9 L (9.5-12.2) fL Immature Gran # 0.09 H (0.00-0.04) X 10*3/uL Neutrophils # 9.0 H 8.75 H (1.3-7.7) k/uL Lymphocytes # 0.8 L (1.0-4.8) k/uL Monocytes # 1.15 H (0.20-1.00) X 10*3/uL Anion Gap (10.00-18.00) mmol/L BUN 37 H (9-20) mg/dL Creatinine 1.26 H (0.66-1.25) mg/dL Est GFR (CKD-EPI)NonAf (60.0-200.0) BUN/Creatinine Ratio (12.00-20.00) Ratio Glucose 118 H (74-99) mg/dL 06/17/22 Range/Units 04:30 WBC (4.50-10.00) X 10*3/uL RDW (11.5-14.5) % MPV (9.5-12.2) fL Immature Gran # (0.00-0.04) X 10*3/uL Neutrophils # (1.3-7.7) k/uL Lymphocytes # (1.0-4.8) k/uL Monocytes # (0.20-1.00) X 10*3/uL Anion Gap 8.50 L (10.00-18.00) mmol/L BUN 32.1 H (9-20) mg/dL Creatinine (0.66-1.25) mg/dL Est GFR (CKD-EPI)NonAf 52.3 L (60.0-200.0) BUN/Creatinine Ratio 24.69 H (12.00-20.00) Ratio Glucose 111 H (74-99) mg/dL
[2022-06-17 13:44] LABS: Appearance,Urine Clear (Clear); Bilirubin,Urine Negative (Negative); Blood,Urine Negative (Negative); Color,Urine Yellow; Glucose,Urine (UA) Negative (Negative); Ketones,Urine Negative (Negative); Leukocyte Esterase,Urine Negative (Negative); Nitrite,Urine Negative (Negative); PH, Urine 5.5 (5.0-8.0); Protein,Urine Negative (Negative); Specific Gravity,Urine 1.028 (1.001-1.035); Urobilinogen,Urine <2.0 mg/dL (<2.0)
[2022-06-17] MEDS ORDERED: fentaNYL (PF) 50 MCG/ML 2 ML AMP ONE (21:17)
[2022-06-17] MEDS ORDERED: LIDOCAINE 2% INJ 20 MG/ML (2 ML VIAL) ONE (21:17)
[2022-06-17] MEDS ORDERED: PROPOFOL 10 MG/ML 20 ML VIAL IV ONE (21:17)
[2022-06-17] MEDS ORDERED: LACTATED RINGERS 1,000 ML IV ONE (21:22)
[2022-06-17] MEDS ORDERED: SODIUM CHLORIDE 0.9% 100 ML with ceFAZolin 2,000 MG IV ONE ×2 (21:22)
[2022-06-17] MEDS ORDERED: IOPAMIDOL-300 50ML BTL MISCELLANE ONE (21:43)
--- NOTE | 2022-06-17 22:11 | P.OP ---
Date of Procedure: 06/17/22 Preoperative Diagnosis: Right hydronephrosis Postoperative Diagnosis: Same Procedure(s) Performed: Cystoscopy, right retrograde pyelogram, right ureteral stent insertion Anesthesia: SALINAA Surgeon: Kendall Barajas Estimated Blood Loss (ml): 0 IV fluids (ml): 400 Pathology: none sent Condition: stable Disposition: PACU Indications for Procedure: The patient is a 77-year-old white male admitted with abdominal and right flank pain. CT scan shows evidence of right hydronephrosis. The patient has a large right lower pole renal cyst measuring 12 x 13 x 14 cm, resulting in medial deviation of the ureter. There appears to be a right midureteral calculus theresa suring 5-6 mm in size. Operative Findings: Medial deviation of the ureter above the iliac vessels. Right hydronephrosis. Right mid-ureteral calculus. Description of Procedure: The patient was taken to the operating room and placed in the dorsolithotomy position, with legs supported in Bertram stirrups. The external genitalia was prepped and draped sterilely. The 30 lens was used to introduce the 22-Dominican Stortz cystoscopic sheath through the urethra and into the bladder under direct vision. The prostatic urethra showed evidence of mild lateral lobe enlargement which was partially obstructing. The bladder was examined in its entirety. Both ureteral orifices were of normal anatomic location and configuration. No tumors or foreign bodies were seen. Using a 10-Dominican cone-tipped catheter, a right retrograde pyelogram was performed. The distal ureter appeared normal. At the level of the iliac vessels, the ureter began to deviate medially. A calculus was seen as a filling defect within the right mid ureter. There was evidence of right hydronephrosis. The upper pole calyces failed to opacify. A 0.035 inch Glidewire was passed through the cystoscope. The right ureteral orifice was cannulated, and the Glidewire was slowly advanced up to the renal pelvis. A 28 cm, 6-Dominican double-J ureteral stent was placed over the wire. Given the patient's height and the fact that the ureter was elongated as a result of the medial deviation, the proximal end of the stent barely reached the renal pelvis and coiled at the ureteropelvic junction. The distal end of the stent curled within the bladder. The bladder was emptied and the cystoscope removed. The patient tolerated the procedure well was taken to the recovery room in stable condition.
[2022-06-17] MEDS: polyethylene glycoL 3350 17 GM POWD.PACK PO SCH (22:54)
[2022-06-17] MEDS: TAMSULOSIN 0.4 MG CAP.ER.24H PO SCH (22:58)
[2022-06-18] MEDS: SODIUM CHLORIDE 0.9% 1,000 ML IV SCH ×2 (01:20→09:42)
[2022-06-18] MEDS: ACETAMINOPHEN TAB 325 MG TAB PO PRN (05:33)
[2022-06-18] MEDS: LOPERAMIDE 2 MG CAP PO PRN ×2 (06:16→09:14)
[2022-06-18 08:44] VITALS: BP 129/86; PULSE 94; RESP 17; TEMP 97.7
[2022-06-18 08:46] LABS: Basophils # (A) 0.03 X 10*3/uL (0.00-0.10); Basophils % (A) 0.4 %; Eosinophils # (A) 0.15 X 10*3/uL (0.04-0.35); Eosinophils % (A) 2.1 %; HCT 45.6 % (39.6-50.0); HGB 14.8 g/dL (13.0-17.0); Immature Grans, Automated 0.6 %; Lymphocytes # (A) 1.24 X 10*3/uL (0.90-5.00); Lymphocytes % (A) 17.4 %; MCH 29.4 pg (27.0-32.0); MCHC 32.5 g/dL (32.0-37.0); MCV 90.5 fL (80.0-97.0); Mean Platelet Volume 8.8 fL (9.5-12.2); Monocytes # (A) 0.78 X 10*3/uL (0.20-1.00); Monocytes % (A) 10.9 %; NRBC Per 100 WBC 0 /100 WBCS (0.0-0.0); Neutrophils # (A) 4.89 X 10*3/uL (1.80-7.70); Neutrophils % (A) 68.6 %; Platelet Count 165 X 10*3/uL (140-440); RBC 5.04 X 10*6/uL (4.40-5.60); RDW 14.6 % (11.5-14.5); WBC 7.13 X 10*3/uL (4.50-10.00)
[2022-06-18 08:58] LABS: Anion Gap 11.2 mmol/L (10.00-18.00); BUN/Creat Ratio 26.88 Ratio (12.00-20.00); Blood Urea Nitrogen 23.9 mg/dL (9.0-27.0); Calcium 8.6 mg/dL (8.7-10.3); Carbon Dioxide 24.4 mmol/L (20.0-27.5); Non-African American GFR(CKD) 81.9 (60.0-200.0); Potassium 3.9 mmol/L (3.5-5.5)
[2022-06-18] MEDS ORDERED: MULTIVITAMINS, THERA 1 EACH TAB PO SCH (09:00)
[2022-06-18] MEDS ORDERED: VIT A,C & E-LUTEIN-MINERALS 1 EACH TAB PO SCH (09:00)
--- NOTE | 2022-06-18 09:04 | P.PN ---
Subjective Progress Note Date: 06/18/22 Principal diagnosis: Right hydronephrosis The patient is a pleasant 77-year-old male with a past medical history of osteoarthritis. He presented to the emergency department on 06/16/22 complaints of abdominal pain with associated nausea and vomiting. Workup in the emergency department included a KUB x-ray which showed prominent or dilated bowel loops in the upper abdomen possible ileus or partial obstruction. Abdomen/pelvis CT without contrast revealed a large exophytic thin-walled cyst from the lower right kidney pole with local mass effect. There is mild right-sided hyd ronephrosis. There is a suspected obstructing right mid ureteral calculus measuring 5-6 mm in size. No left-sided renal calculi or hydronephrosis. There is a 2.0 cm simple-appearing thin-walled cyst laterally in the mid to lower pole level left kidney. WBC 10.6, hemoglobin 17.3, BUN 37, creatinine 1.26. 06/17 The patient has a history of a kidney stone approximately 20 years which he passed spontaneously. He denies any history of cancer. He reports having prostate surgery, a urolift, approximately [address] Kessler from [facility]. No urinary hesitancy, he reports having a good stream when voiding but he does experience urgency. The patient reports having right flank and lower back pain that radiates to his right lower abdomen with associated nausea and vomiting. He denies any dysuria or hematuria. The patient denies any pain currently while resting in bed. He states he has pain primarily when he is up moving about. WBC 11.16, serum creatinine 1.3 today. Unknown baseline creatinine. Patient will go to the OR this afternoon for a cystoscopy, right retrograde pyelogram, possible right ureteral stent insertion with . If patient's pain persists will consider consulting IR for renal cyst aspiration. Objective - Vital Signs Vital signs: Vital Signs Temp 97.7 F 06/18/22 08:00 Pulse 94 06/18/22 08:00 Resp 17 06/18/22 08:00 BP 129/86 06/18/22 08:00 Pulse Ox 97 06/18/22 08:00 FiO2 Intake & Output 06/17/22 06/18/22 06/18/22 18:59 06:59 18:59 Intake Total 700 Output Total 700 0 Balance -700 700 Intake: IV 700 Output: Urine 700 Estimated Blood Loss 0 Other: Voiding Method Toilet Toilet Urinal Urinal # Voids 1 3 # Bowel Movements 5 - Exam General: Well developed, well nourished. No acute distress. HEENT: Head is atraumatic, normocephalic. Lungs: Respirations even and nonlabored. On RA Abdomen/GI: Soft, non-distended. : Normal phallus, normal urethral meatus. The scrotum and testes are normal. Skin: Warm and dry Neurologic: Alert and oriented 3, CN II-XII grossly intact. No focal deficits. Psychiatric: Appropriate mood and affect. - Labs CBC & Chem 7: 06/18/22 04:14 06/18/22 04:14 Labs: Abnormal Lab Results - Last 24 Hours (Table) 06/17/22 06/18/22 Range/Units 04:30 04:14 RDW 14.6 H (11.5-14.5) % MPV 8.8 L (9.5-12.2) fL Anion Gap 8.50 L (10.00-18.00) mmol/L BUN 32.1 H (9.0-27.0) mg/dL Est GFR (CKD-EPI)NonAf 52.3 L (60.0-200.0) BUN/Creatinine Ratio 24.69 H (12.00-20.00) Ratio Glucose 111 H (70-110) mg/dL Microbiology - Last 24 Hours (Table) 06/16/22 15:55 Blood Culture - Preliminary Blood No Growth after 24 hours 06/16/22 14:47 Blood Culture - Preliminary Blood No Growth after 24 hours Assessment and Plan Assessment: POD #1 The patient is sitting up eating breakfast. He reports that his right flank and back pain has improved significantly. He is voiding without difficulty and reports some hematuria, which is expected. His urinalysis is negative. Our office will contact the patient to schedule a secondary procedure for right ureteral stent removal and ureteroscopic removal of his right ureteral calculus next month. After his stent removal, his pain will be re-evaluated which will determine if the renal cyst requires intervention. (1) Renal cyst Status: Acute Code(s): N28.1 - CYST OF KIDNEY, ACQUIRED SNOMED Code(s): 360224611 (2) Unspecified hydronephrosis Status: Acute Code(s): N13.30 - UNSPECIFIED HYDRONEPHROSIS SNOMED Code(s): 59082526 (3) Calculus of ureter Status: Acute Code(s): N20.1 - CALCULUS OF URETER SNOMED Code(s): 29945195 Plan: - Continue current pain regimen - Continue Flomax - The patient may be discharged from a urological standpoint Thank you for this consultation Impression and plan of care have been directed as dictated by the signing physician. Shirley Beckman nurse practitioner acting as scribe for signing physician. Shirley Beckman [facility] Palliative Care/Urology Spectralink [id number] Email: [email or web address] I have personally seen and examined the patient, reviewed the documentation and agree with the assessment and plan as written. Number of minutes spent on the visit: 20. Kendall Barajas MD
[2022-06-18] MEDS: HYDROcodone/APAP 5-325MG 1 EACH TAB PO PRN (09:13)
[2022-06-18] MEDS: HEPARIN SODIUM,PORCINE/PF 5,000 UNIT/0.5 ML SYRINGE SQ SCH (09:13)
--- NOTE | 2022-06-18 09:43 | FL ---
EXAMINATION TYPE: FL guidance operating room DATE OF EXAM: 06/17/2022 HISTORY: Fluoroscopy time 1 min 18 sec fl time, 14.375 dap. of fluoroscopy provided. IMPRESSION: 1. Fluoroscopy time.
--- NOTE | 2022-06-18 13:04 | P.DS ---
Providers Date of admission: 06/16/22 16:00 Expected date of discharge: 06/18/22 Attending physician: Christopher De Leon MD Consults: 06/16/22 16:41 Consult Physician Routine Consulting Provider: Kendall Barajas Consult Reason/Comments: obstructive renal calculi. Large renal cyst with mass effect Do you want consulting provider notified?: Already Contacted Primary care physician: Stated None Hospital Course: Discharge Diagnosis: Right-sided hydronephrosis, mild Obstructing right mid ureter calculus 5-6 mm Large exophytic thin-walled right renal cyst Leukocytosis, reactive Chronic kidney disease Elevated BUN Hospital Course: 77-year-old male with no significant past medical history presenting with abdominal, flank pain, and constipation. In the ED, he was afebrile, pulse 94, respiratory rate of 20, blood pressure 165/99, saturating at 95%. Laboratory workup showed unremarkable CBC, CMP showed BUN 37, creatinine 1.6, glucose 118, lactate 1.4, lipase 40. KUB showed prominent dilated bowel loops concerning for ileus or partial obstruction. CT abdomen and pelvis showed mild right-sided hydronephrosis due to suspected 5- 6 mm obstructing right mid ureter calculus. Large exophytic thin-walled cyst with local mass effect also contributing to mild right-sided hydronephrosis, [id number] x 12 x 14 cm. Patient being admitted for further workup and urology consult. He had cystoscopy, right retrograde Polygram, and right ureteral stent insertion. He is clinically improving. Patient to follow-up with urology as an outpatient for stent removal as well as further workup for right renal cyst Patient seen and examined at bedside. Vital signs reviewed and stable. General: nontoxic, no distress, appears at stated age Derm: warm, dry Head: atraumatic, normocephalic, symmetric Eyes: EOMI, no lid lag, anicteric sclera Mouth: no lip lesion, mucus membranes moist Cardiovascular: S1S2 reg, no murmur Lungs: CTA bilateral, no rhonchi, no rales , no accessory muscle use Abdominal: soft, nontender to palpation, no guarding, no appreciable organomegaly Ext: no gross muscle atrophy, no edema, no contractures Neuro: CN II-XI grossly intact, no focal neuro deficits Psych: Alert, oriented, appropriate affect A total of 36 minutes of time were spent preparing this complex discharge summary. Patient was discharged on 06/18/22 at 11:33. Patient Condition at Discharge: Stable Plan - Discharge Summary New Discharge Prescriptions: New Tamsulosin HCl [Flomax] 0.4 mg PO PC-SUPPER 30 Days #30 capsule Acetaminophen Tab [Tylenol] 650 mg PO Q6HR PRN #30 tab PRN Reason: Mild Pain Or Fever > 100.5 Continue Multivitamins, Thera [Multivitamin (formulary)] 1 tab PO DAILY Maxivision 1 tab PO DAILY Discharge Medication List Multivitamins, Thera [Multivitamin (formulary)] 1 tab PO DAILY 11/11/20 [History] Maxivision 1 tab PO DAILY 06/16/22 [History] Acetaminophen Tab [Tylenol] 650 mg PO Q6HR PRN #30 tab 06/18/22 [Rx] Tamsulosin HCl [Flomax] 0.4 mg PO PC-SUPPER 30 Days #30 capsule 06/18/22 [Rx] Follow up Appointment(s)/Referral(s): Kendall Barajas MD [STAFF PHYSICIAN] - 1 Week ([facility] will call patient with an appointment next week.) None,Stated [Primary Care Provider] - 1-2 days Patient Instructions/Handouts: Kidney Stones (DC) Activity/Diet/Wound Care/Special Instructions: - Activity as tolerated - Blood in the urine is normal with the stent Please see urology and PCP. You need follow up with regards to the kidney cyst. Discharge Disposition: HOME SELF-CARE
== END 2022-06-18 12:38 | disposition home or self-care (01) | DRG 661 ==
LOC: EC 11:58 → 4SSUR 16:00 → 6NMEDSUR 19:33
PROVIDERS: ADMIT Student in an Organized Health Care Education/Training Program; ATTEND Student in an Organized Health Care Education/Training Program
PROC: 0T768DZ Dilation of Right Ureter with Intraluminal Device, Via Natural or Artificial Opening Endoscopic (ICD-10-PCS; principal; 2022-06-17 15:20)
PROC: BT1D1ZZ Fluoroscopy of Right Kidney, Ureter and Bladder using Low Osmolar Contrast (ICD-10-PCS; 2022-06-17 15:20)
DX: N13.2 Hydronephrosis with renal and ureteral calculous obstruction (principal); N17.9 Acute kidney failure, unspecified; N18.9 Chronic kidney disease, unspecified; N28.1 Cyst of kidney, acquired; M19.90 Unspecified osteoarthritis, unspecified site; K59.00 Constipation, unspecified; R32 Unspecified urinary incontinence; Z88.1 Allergy status to other antibiotic agents; Z88.0 Allergy status to penicillin; Z87.442 Personal history of urinary calculi
CPT/HCPCS: 36415; 74018; 74176; 80048; 80053; 81003; 82150; 83605; 83690; 83735; 85025; 87040; 96360; 96361; 99285

== ENCOUNTER → 2022-07-07 | Outpatient (CLI) | payer MEDICARE ==
[2022-07-07 15:47] LABS: Basophils # (A) 0.04 X 10*3/uL (0.00-0.10); Basophils % (A) 0.5 %; Eosinophils # (A) 0.35 X 10*3/uL (0.04-0.35); Eosinophils % (A) 4.5 %; HCT 48.8 % (39.6-50.0); HGB 15.7 g/dL (13.0-17.0); Immature Grans, Automated 0.4 %; Lymphocytes # (A) 1.77 X 10*3/uL (0.90-5.00); MCH 28.8 pg (27.0-32.0); MCHC 32.2 g/dL (32.0-37.0); MCV 89.5 fL (80.0-97.0); Mean Platelet Volume 8.8 fL (9.5-12.2); Monocytes # (A) 0.71 X 10*3/uL (0.20-1.00); Monocytes % (A) 9.2 %; NRBC Per 100 WBC 0 /100 WBCS (0.0-0.0); Neutrophils % (A) 62.4 %; Platelet Count 316 X 10*3/uL (140-440); RBC 5.45 X 10*6/uL (4.40-5.60); RDW 14.3 % (11.5-14.5)
[2022-07-07 16:17] LABS: African American GFR (CKD) 94.5 (60.0-200.0); Albumin 4.6 g/dL (3.8-4.9); Albumin/Globulin Ratio 1.92 (1.60-3.17); Anion Gap 11.2 mmol/L (10.00-18.00); BUN/Creat Ratio 34.33 Ratio (12.00-20.00); Blood Urea Nitrogen 30.9 mg/dL (9.0-27.0); Calcium 10.2 mg/dL (8.7-10.3); Carbon Dioxide 27.8 mmol/L (20.0-27.5); Globulin 2.4 g/dL (1.6-3.3); Non-African American GFR(CKD) 81.5 (60.0-200.0); Potassium 4.6 mmol/L (3.5-5.5); Total Bilirubin 0.5 mg/dL (0.30-1.20)
== END | disposition home or self-care (01) ==
LOC: LABPAT 11:17
PROVIDERS: ATTEND Urology
DX: Z01.812 Encounter for preprocedural laboratory examination (principal); N20.1 Calculus of ureter
CPT/HCPCS: 80053; 85025

== ENCOUNTER 2022-07-15 08:29 | Day surgery (SDC) | payer MEDICARE ==
--- NOTE | 2022-07-14 22:36 | P.GSHP ---
History of Present Illness H&P Date: 07/14/22 Chief Complaint: Flank pain The patient is a pleasant 77-year-old male with a past medical history of osteoarthritis. He presented to the emergency department on 06/16/22 complaints of abdominal pain with associated nausea and vomiting. Workup in the emergency department included a KUB x-ray which showed prominent or dilated bowel loops in the upper abdomen possible ileus or partial obstruction. Abdomen/pelvis CT without contrast revealed a large exophytic thin-walled cyst from the lower right kidney pole with local mass effect. There is mild right-sided hydronephrosis which appeared to be due to an obstructing right mid ureteral calculus measuring 5-6 mm in size. He underwent cystoscopy in 06/17/2022. He was found to have medial deviation of the right ureter above the iliac vessels, right hydronephrosis, and a right mid-ureteral calculus. A ureteral stent was placed. - Constitutional Constitutional: Reports chills - Gastrointestinal Gastrointestinal: Reports nausea, Reports vomiting - Genitourinary (Male) Genitourinary: Reports flank pain, Reports kidney stones, Denies hematuria Past Medical History Past Medical History: Osteoarthritis (OA) Additional Past Medical History / Comment(s): kidney stones, History of Any Multi-Drug Resistant Organisms: None Reported Past Surgical History: No Surgical Hx Reported Additional Past Surgical History / Comment(s): knee arthroscopy Past Anesthesia/Blood Transfusion Reactions: No Reported Reaction Additional Past Anesthesia/Blood Transfusion Reaction / Comment(s): no blood transfusion hx Smoking Status: Former smoker Medications and Allergies Home Medications Medication Instructions Recorded Confirmed Type Maxivision 1 tab PO DAILY 06/16/22 07/09/22 History Acetaminophen Tab [Tylenol] 650 mg PO Q6HR PRN #30 tab 06/18/22 07/09/22 Rx Tamsulosin HCl [Flomax] 0.4 mg PO PC-SUPPER 30 Days #30 06/18/22 07/09/22 Rx capsule Magnesium ( Unknown) 1 tab PO DAILY 07/09/22 07/09/22 History Postassium Gluconate 90 mg PO HS 07/09/22 07/09/22 History Allergies Allergy/AdvReac Type Severity Reaction Status Date / Time doxycycline Allergy Swelling Verified 07/09/22 13:17 Penicillins Allergy Unknown Verified 07/09/22 13:17 Surgical - Exam - General well developed, well nourished, no distress - Respiratory normal respiratory effort - Abdomen Abdomen: soft, tender (Right-sided tenderness), no guarding, no rigid, no rebound - Genitourinary normal penis with no external lesions, testicles non-tender - Psychiatric oriented to time, oriented to person, oriented to place, speech is normal, memory intact Results - Imaging CT scan - abdomen: report reviewed, image reviewed Assessment and Plan (1) Hydronephrosis with urinary obstruction due to renal calculus Status: Acute Code(s): N13.2 - HYDRONEPHROSIS WITH RENAL AND URETERAL CALCULOUS OBSTRUCTION SNOMED Code(s): 65379141 Plan: Cystoscopy, right ureteral stent removal, right ureteroscopy with Holmium laser lithotripsy and possible stone basketing. The procedure then reviewed in detail with the patient. He is aware of potential risks, which include anesthesia, bleeding, infection, inability to remove the calculus, and ureteral injury.
[~2022-07-15 08:29] MED LIST changes: -MIDAZOLAM 2 MG/2 ML VIAL IV PRN
--- NOTE | 2022-07-15 09:14 | XR ---
EXAMINATION TYPE: XR KUB DATE OF EXAM: 07/15/2022 COMPARISON: KUB radiograph 06/16/2022, CT abdomen pelvis 06/16/2022. HISTORY: Kidney stones TECHNIQUE: 2 supine KUB images of the abdomen obtained FINDINGS: Small bowel demonstrates no evidence for dilatation or air fluid levels. Gas and fecal material is seen in non-distended colon. Right ureteral stent identified. Left pelvic phlebolith redemonstrated. No definitive calculi within the course of the right ureter. N o definitive bilateral renal calculi. The lung bases are clear. Posttreatment changes of the prostate gland. The osseous structures are intact. Degenerative changes of the lower lumbar spine. IMPRESSION: Right ureteral stent without visualized ureteral or renal calculi.
[2022-07-15] MEDS: LACTATED RINGERS 1,000 ML IV SCH ×2 (10:08→12:47)
[2022-07-15] MEDS ORDERED: fentaNYL (PF) 50 MCG/ML 2 ML AMP ONE (12:44)
[2022-07-15] MEDS ORDERED: PROPOFOL 10 MG/ML 20 ML VIAL IV ONE (12:44)
[2022-07-15] MEDS ORDERED: MIDAZOLAM 2 MG/2 ML VIAL ONE (12:44)
[2022-07-15] MEDS ORDERED: LIDOCAINE 2% INJ 20 MG/ML (2 ML VIAL) ONE (12:44)
[2022-07-15] MEDS ORDERED: LACTATED RINGERS 1,000 ML IV ONE (13:25)
--- NOTE | 2022-07-15 13:39 | P.OP ---
Date of Procedure: 07/15/22 Preoperative Diagnosis: Right ureteral calculus Postoperative Diagnosis: Same Procedure(s) Performed: Cystoscopy, right ureteral stent removal, right ureteroscopy with Holmium laser lithotripsy and stone basketing Anesthesia: JOY Surgeon: Kendall Barajas Estimated Blood Loss (ml): 5 IV fluids (ml): 700 Pathology: other (Right ureteral calculus fragments, sent for chemical analysis) Condition: stable Disposition: PACU Indications for Procedure: The patient is a pleasant 77-year-old male with a past medical history of osteoarthritis. He presented to the emergency department on 06/16/22 complaints of abdominal pain with associated nausea and vomiting. Workup in the emergency department included a KUB x-ray which showed prominent or dilated bowel loops in the upper abdomen possible ileus or partial obstruction. Abdomen/pelvis CT without contrast revealed a large exophytic thin-walled cyst from the lower right kidney pole with local mass effect. There is mild right-sided hydronephrosis which appeared to be due to an obstructing right mid ureteral calculus measuring 5-6 mm in size. He underwent cystoscopy in 06/17/2022. He was found to have medial deviation of the right ureter above the iliac vessels, right hydronephrosis, and a right mid-ureteral calculus. A ureteral stent was placed. He now comes for removal of the right ureteral calculus. Operative Findings: Right mid-ureteral calculus, fragmented and removed completely. Description of Procedure: The patient was taken to the operating room and placed in the dorsolithotomy position, with legs supported in Bertram stirrups. The external genitalia was prepped and draped sterilely. The 30 lens was used to introduce the 21-Mosotho Etienne cystoscopic sheath through the urethra and into the bladder under direct vision. The prostatic urethra showed evidence of mild lateral lobe enlargement. The bladder was examined in its entirety. No tumors or foreign bodies were seen. Grasping forceps were used to grasp the distal end of the right ureteral stent removal along with the cystoscope. A 0.038 inch Glidewire was passed through the stent and up to the right renal pelvis. The stent was removed, and an 11/13-Mosotho ureteral access catheter was passed over the wire, up to the mid ureter. The Etienne sean flexible ureteroscope was then passed through the ureteral access catheter sheath and into the ureter. The calculus was identified. The 272 micron Holmium laser probe was passed through the ureteroscope, and lithotripsy was performed. After fragmenting the calculus, which fragmented readily, a 1.5-Mosotho 0-tip nitinol basket was used to remove the calculus fragments. Final inspection of the ureter showed no evidence of ureteral trauma, and no residual calculus fragments. The patient tolerated the procedure well and was taken to the recovery room in stable condition. [facility] Report: Procedure Acuity: Elective Stone Size and Location: 5 mm, right mid ureter Ureteral Dilation: No Ureteral Access Sheath Used: Yes Stone Sent for Analysis: Yes All Stones/Fragments Were Removed with a Basket: Yes Complications: No Preoperative Antibiotics Given: Yes Stent Placed: No Discharge Medications: None
[2022-07-15 13:55] VITALS: TEMP 97.1
--- NOTE | 2022-07-15 14:01 | FL ---
Intraoperative/procedural fluoroscopic services were provided for right ureteral stone/lithotripsy. T otal fluoroscopy time is 8 seconds with a total of 1 submitted image to PACS. Total DAP 1.2205. Valentín velasquez see the operative note for further details.
[2022-07-15 15:09] VITALS: RESP 16
[2022-07-15 15:35] VITALS: BP 134/78; PULSE 81
== END 2022-07-15 15:52 | disposition home or self-care (01) ==
LOC: OR 08:29
PROVIDERS: ATTEND Urology
DX: N13.2 Hydronephrosis with renal and ureteral calculous obstruction (principal); M19.90 Unspecified osteoarthritis, unspecified site; N28.1 Cyst of kidney, acquired; Z87.442 Personal history of urinary calculi; Z87.891 Personal history of nicotine dependence; Z79.899 Other long term (current) drug therapy; Z88.0 Allergy status to penicillin; Z88.1 Allergy status to other antibiotic agents
CPT/HCPCS: 52353; 82365; 74018; C1769; J2250; J1100; J0690; J2405; J3010; J2704; J2001

== ENCOUNTER → 2022-08-18 | Outpatient (CLI) | payer MEDICARE ==
--- NOTE | 2022-08-19 08:40 | MR ---
EXAMINATION TYPE: MR knee RT wo con DATE OF EXAM: 08/18/2022 COMPARISON: Outside right knee x-ray August 03, 2022 HISTORY: Right knee pain after accident 6 months ago. TECHNIQUE: Multiplanar, multisequence images of the knee is performed without IV contrast. FINDINGS: MEDIAL MENISCUS: Medial extrusion. Irregular and Oblique signal posterior horn extends to inferior ar ticular surface and into the central body where there is marked fraying. LATERAL MENISCUS: Increased horizontal signal central body extends to the anterior horn and likely ayala perior articular surface. CRUCIATE LIGAMENTS: The posterior cruciate ligament is intact and unremarkable. Increased signal with thinning of the fibers of the anterior cruciate ligament. COLLATERAL LIGAMENTS: The medial collateral ligament and lateral collateral ligament complex are inta ct. There is medial bulging of the medial collateral ligament with surrounding fluid. EXTENSOR MECHANISM: Visualized quadriceps and patellar tendons are intact. EFFUSION: [id number] size suprapatellar joint effusion. POPLITEAL CYST: Moderate to large sized partially septated popliteal/garcia cyst seen best sagittal im age 8 there is increased signal centrally in the semimembranous tendon.. TRICOMPARTMENT SPACES: Moderate to severe tricompartment joint space loss with mild/moderate spurring . CARTILAGE: Some chondromalacia patella with cartilaginous loss along the posterior medial aspect. Sig nificant cartilaginous loss medial tibiofemoral compartment. BONE MARROW SIGNAL: Heterogeneous diminished T1 and increased T2 signal involving the medial aspect o f the distal medial femoral condyle. OTHER: No additional significant abnormality is appreciated. IMPRESSION: 1. Tricompartment degenerative changes that are at least moderately advanced patellofemoral and media l tibiofemoral compartment as detailed above. 2. Abnormal bone marrow edema involving the medial aspect of the distal medial femoral condyle. 3. Full-thickness tear lateral meniscus involving central body and anterior horn. 4.. There is emaciated full-thickness tear medial meniscus involving posterior horn and central body. 5. [id number] MCL sprain injury. 6. Small to moderate-sized suprapatellar joint effusion. 7. Moderate to large sized popliteal cyst with partial tearing of the semimembranous tendon.
== END | disposition home or self-care (01) ==
LOC: RADMRIMAIN 11:15
PROVIDERS: ATTEND Orthopaedic Surgery
DX: S83.411A Sprain of medial collateral ligament of right knee, initial encounter (principal); S83.241A Other tear of medial meniscus, current injury, right knee, initial encounter; M71.21 Synovial cyst of popliteal space [Baker], right knee; M17.11 Unilateral primary osteoarthritis, right knee; M25.461 Effusion, right knee

== ENCOUNTER → 2022-08-27 | Outpatient (CLI) | payer MEDICARE ==
--- NOTE | 2022-08-27 12:56 | US ---
EXAMINATION TYPE: US kidneys/renal and bladder DATE OF EXAM: 08/27/2022 COMPARISON: NONE CLINICAL INDICATION: Male, 77 years old with history of N13.2 HYDRONEPHROSIS WITH RENAL AND URETERAL CALCU; Stent removed recently, hx of renal stones and cysts EXAM MEASUREMENTS: Right Kidney: 12.7x5.7x5.8 cm Left Kidney: 12.4x5.7x4.9 cm Right Kidney: Two anechoic areas measured: superior lateral: 1.6x1.3x1.5 mid medial: 14.7x15.8x9.1cm Left Kidney: single anechoic area measured on inferior medial kidney: 3.1x3.0x3.0cm Bladder: wnl Bilateral Jets seen: Yes . rt kidney limited due to large thin-walled cyst and overlying bowel gas. A few additional smaller sim ple-appearing thin-walled cysts throughout the right kidney are seen. Bladder is adequately distended . There is increased cortical echogenicity bilaterally. There is 3.0 cm simple appearing thin-walled cyst in the left kidney. IMPRESSION: Evidence of chronic medical renal disease bilaterally. No hydronephrosis clearly seen ирина aterally on current study.
== END | disposition home or self-care (01) ==
LOC: RADUSWWP 11:58
PROVIDERS: ATTEND Urology
DX: N13.2 Hydronephrosis with renal and ureteral calculous obstruction (principal); N28.89 Other specified disorders of kidney and ureter
CPT/HCPCS: 76770

== ENCOUNTER → 2022-09-29 | Outpatient (CLI) | payer MEDICARE ==
[2022-09-29 15:39] LABS: Basophils # (A) 0.04 X 10*3/uL (0.00-0.10); Basophils % (A) 0.7 %; Eosinophils # (A) 0.31 X 10*3/uL (0.04-0.35); Eosinophils % (A) 5.2 %; HCT 45.8 % (39.6-50.0); HGB 14.7 d/dL (12.0-15.0); Lymphocytes # (A) 1.81 X 10*3/uL (0.90-5.00); Lymphocytes % (A) 30.1 %; MCH 29.3 pg (27.0-32.0); MCHC 32.1 d/dL (32.0-37.0); MCV 91.2 FL (80.0-97.0); Mean Platelet Volume 8.8 FL (9.5-12.2); Monocytes # (A) 0.52 X 10*3/uL (0.20-1.00); Monocytes % (A) 8.7 %; NRBC Per 100 WBC 0 X 10*3/uL (0.00-0.01); Neutrophils # (A) 3.28 X 10*3/uL (1.80-7.70); Neutrophils % (A) 54.5 %; Platelet Count 219 X 10*3/uL (140-440); RBC 5.02 X 10*6/uL (4.40-5.60); RDW 13.8 % (11.5-14.5); WBC 6.01 X 10*3/uL (4.50-10.00)
[2022-09-29 16:07] LABS: Anion Gap 9.3 mmol/L (4.00-12.00); Carbon Dioxide 28.7 mmol/L (21.6-31.8); Potassium 4.5 mmol/L (3.5-5.5)
== END | disposition home or self-care (01) ==
LOC: LABPAT 09:09
PROVIDERS: ATTEND Orthopaedic Surgery
DX: Z01.812 Encounter for preprocedural laboratory examination (principal); M23.91 Unspecified internal derangement of right knee
CPT/HCPCS: 36415; 80051; 85025

== ENCOUNTER 2022-10-18 13:43 | Day surgery (SDC) | payer MEDICARE ==
[2022-10-13 14:19] VITALS: BMI 28.0
--- NOTE | 2022-10-18 08:06 | HP ---
HISTORY AND PHYSICAL DATE OF SURGERY: 10/18/2022. HISTORY OF PRESENT ILLNESS: Jermain Miller is a 77-year-old gentleman, seen with progressive right knee pain. After treatment options were discussed, he elected to proceed with right knee arthroscopy. Consent regarding procedure obtained. PAST MEDICAL HISTORY: Hyperlipidemia, osteoarthritis. PAST SURGICAL HISTORY: Left knee arthroscopy. DAILY MEDICATIONS: 1. Tylenol. 2. Atorvastatin. ALLERGIES: Doxycycline. SOCIAL HISTORY: Denies current tobacco use. PHYSICAL EVALUATION OF THE RIGHT KNEE: Range of motion is 0 to 120 degrees. Mild effusion. Tenderness to medial joint line. Positive medial Tono's. Tenderness to lateral joint line. Positive lateral Tono's. Ligaments stable. Hip rotation without pain. Distal neurovascular exam is intact. IMAGING: Radiographs of the right knee reveal mild osteoarthritis. MRI right knee revealed medial and lateral meniscal tears along with an intra-articular effusion. IMPRESSION: 1. Internal derangement of right knee with medial/lateral meniscal tears. 2. Hyperlipidemia. PLAN: Right knee arthroscopy with partial medial/lateral meniscectomy and debridement. MMODL / IJN: [id number] /
[~2022-10-18 13:43] MED LIST changes: +LACTATED RINGERS 1,000 ML IV SCH
[2022-10-18] MEDS ORDERED: PROPOFOL 10 MG/ML 20 ML VIAL IV ONE (15:16)
[2022-10-18] MEDS ORDERED: LIDOCAINE 2% INJ 20 MG/ML (2 ML VIAL) ONE (15:16)
[2022-10-18] MEDS ORDERED: fentaNYL (PF) 50 MCG/ML 2 ML AMP ONE (15:16)
[2022-10-18] MEDS ORDERED: BUPIVACAINE (PF) 0.25% 30 ML VIAL SQ ONE ×2 (15:37→15:55)
--- NOTE | 2022-10-18 16:08 | P.OP ---
Date of Procedure: 10/18/22 Preoperative Diagnosis: Internal derangement right knee Postoperative Diagnosis: 1. Tear medial and lateral meniscus right knee 2. Grade 4 chondromalacia medial femoral condyle right knee 3. Reactive synovitis medial, lateral and suprapatellar compartments right knee Procedure(s) Performed: 1. Arthroscopic partial medial and lateral meniscectomy right knee 2. Arthroscopic microfracture medial femoral condyle right knee 3. Arthroscopic partial synovectomy medial, lateral and suprapatellar compartments right knee Anesthesia: SALINAA, local Surgeon: Ashwin Hoffman Estimated Blood Loss (ml): 8 Pathology: none sent Condition: stable Disposition: PACU Indications for Procedure: 77-year-old gentleman seen with progressive right knee pain. After having treatment options discussed, he elected to proceed with arthroscopy. Operative Findings: See description of procedure Description of Procedure: Patient was taken to the operative suite. Patient underwent a general anesthetic by the department of anesthesia. Patient was given preoperative antibiotics. The right lower extremity was placed in a well-padded arthroscopic leg bess. The right leg was prepped and draped in the normal sterile orthopedic fashion. A lateral parapatellar and suprapatellar incision was made. Trochars were inserted. Arthroscopy was initiated. Suprapatellar pouch revealed diffuse thick reactive synovitis. The patellofemoral joint appeared to articulate congruently. There was grade 1/2 chondromalacia of the patella with no tears.. The scope was guided into the medial gutter. No loose body or plica were identified. The scope was then guided into the medial compartment. A medial parapatellar incision was made. Trocar inserted followed by probe. There was a complex tear involving the posterior horn and midbody medial meniscus. There was an area of grade 4 chondromalacia involving the medial femoral condyle measuring about 1 cm diameter without any significant tears. There was some thick reactive synovitis anteriorly. I performed a partial medial meniscectomy getting down to stable meniscal tissue. I performed a partial synovectomy decompressing the reactive synovitis. I introduced a microfracture awl performed a microfracture to that area of exposed bone along the medial femoral condyle penetrating the bone with resultant bleeding at the microfracture site. The residual meniscus was probed and was found to be stable. There was good decompression of the synovitis. The residual osteochondral surface appeared stable. Scope and probe were then guided into the intercondylar notch. Cruciates were identified, probed and found to be stable. The scope and probe were then guided into lateral compartment. With a complex tear involving the midbody lateral meniscus. There were grade 1/2 chondromalacia changes of lateral compartment without significant tears. There was some thick reactive synovitis anteriorly. I performed a partial lateral meniscectomy getting down to stable meniscal tissue. I performed a partial synovectomy decompressing the reactive synovitis anteriorly. The residual meniscus was probed and was found to be stable. There appeared be good decompression of the synovitis. The scope was in guided back into the suprapatellar compartment. I introduced a motorized shaver into the suprapatellar compartment. I debrided some piecemeal fragments of meniscus that I encountered. I performed a partial synovectomy. The shaver was now removed. I now took one more look around the entire knee, no residual debris. Instruments were now removed from the joint. The joint was infiltrated with .25% Marcaine. Steri-Strips were applied to the portal sites. Sterile dressings were applied. The patient was placed into a ZOILA hose. No tourniquet was utilized. The patient was awakened, transferred to a bed and taken to recovery stable satisfactory condition.
[2022-10-18 16:25] VITALS: TEMP 97
[2022-10-18 16:46] VITALS: PULSE 78
[2022-10-18 17:03] VITALS: BP 144/87; RESP 18
== END 2022-10-18 17:46 | disposition home or self-care (01) ==
LOC: OR 13:43
PROVIDERS: ATTEND Orthopaedic Surgery
DX: S83.241A Other tear of medial meniscus, current injury, right knee, initial encounter (principal); S83.281A Other tear of lateral meniscus, current injury, right knee, initial encounter; M94.261 Chondromalacia, right knee; M65.861 Other synovitis and tenosynovitis, right lower leg; E78.5 Hyperlipidemia, unspecified; Z87.442 Personal history of urinary calculi; Z88.0 Allergy status to penicillin; Z79.899 Other long term (current) drug therapy; Z88.1 Allergy status to other antibiotic agents
CPT/HCPCS: 29880; 29879; J1100; J0690; J2405; J3010; J2704; J2001

== ENCOUNTER 2023-10-03 11:05 | Day surgery (SDC) | payer MEDICARE ==
[2023-09-27 14:43] VITALS: BMI 29.8
[~2023-10-03 11:05] MED LIST changes: -DEXAMETHASONE SOD PHOSPHATE 4 MG/ML 1 ML VIAL IV ONE; -HYDROmorphone 0.5 MG/0.5 ML SYRINGE IVP PRN; +LIDOCAINE 1% (10MG/ML) FOR IV START INTRADERMA PRN; -ONDANSETRON 4 MG/2 ML VIAL IVP ONE; +ONDANSETRON 4 MG/2 ML VIAL IVP PRN
[2023-10-03] MEDS: IV FLUID CONTINUATION 1,000 ML IV ONE (11:48)
[2023-10-03 12:08] VITALS: RESP 16; TEMP 98
[2023-10-03] MEDS ORDERED: LIDOCAINE 1% INJ 10MG/ML (20 ML MDV) ONE (14:38)
[2023-10-03] MEDS ORDERED: PROPOFOL 10 MG/ML 20 ML VIAL IV ONE (14:38)
--- NOTE | 2023-10-03 14:43 | P.GSHP ---
History of Present Illness H&P Date: 10/03/23 Chief Complaint: Positive Cologuard test This is a 78-year-old male who had a recent positive Cologuard test. Patient presents today for colonoscopy. Past Medical History Past Medical History: Hyperlipidemia, Osteoarthritis (OA) Additional Past Medical History / Comment(s): SEASONAL ALLERGIES. POSITIVE COLOGARD History of Any Multi-Drug Resistant Organisms: None Reported Past Surgical History: Orthopedic Surgery Additional Past Surgical History / Comment(s): COLONOSCOPY. RT KNEE SX Past Anesthesia/Blood Transfusion Reactions: No Reported Reaction Smoking Status: Former smoker - Past Family History Daughter(s) Family Medical History: Cancer Medications and Allergies Home Medications Medication Instructions Recorded Confirmed Type Maxivision 1 tab PO DAILY 06/16/22 10/03/23 History Atorvastatin [Lipitor] 10 mg PO HS 10/13/22 10/03/23 History Docusate [Colace] 200 mg PO DAILY 09/27/23 10/03/23 History Glucosamine/Chondr Ortiz A Sod [Osteo 2 each PO DAILY 09/27/23 10/03/23 History Bi-Flex Caplet] Ibuprofen/Diphenhydramine HCl 2 each PO HS 09/27/23 10/03/23 History [Advil Pm Liqui-Gels] Magnesium Carb,Citrate,Oxide 300 mg PO DAILY 09/27/23 10/03/23 History [Magnesium Complex] Montelukast [Singulair] 10 mg PO DAILY 09/27/23 10/03/23 History Potassium Gluconate 198 mg PO DAILY 09/27/23 10/03/23 History Allergies Allergy/AdvReac Type Severity Reaction Status Date / Time doxycycline Allergy Swelling Verified 10/03/23 11:43 Penicillins Allergy Swelling Verified 10/03/23 11:43 Surgical - Exam Vital Signs Temp Pulse Resp BP Pulse Ox 98 F 83 16 150/90 95 10/03/23 12:00 10/03/23 12:00 10/03/23 12:00 10/03/23 12:00 10/03/23 12:00 - General well developed, well nourished, no distress - Eyes PERRL - ENT normal pinna, normal nares - Neck no masses - Respiratory normal expansion - Cardiovascular Rhythm: regular - Abdomen Abdomen: soft, non tender Assessment and Plan Assessment: Positive Cologuard test. Will perform colonoscopy.
--- NOTE | 2023-10-03 14:54 | P.OP ---
Date of Procedure: 10/03/23 Preoperative Diagnosis: Positive Cologuard test Postoperative Diagnosis: Diverticulosis Procedure(s) Performed: Colonoscopy Anesthesia: MAC Surgeon: Justyn Abrams Pathology: none sent Condition: stable Disposition: PACU Description of Procedure: The patient was placed on the endoscopy table in the lateral position. He received IV sedation. Digital rectal exam was performed. This revealed no abnormalities. The flexible colonoscope was then placed patient anus and passed throughout the entire colon. The ileocecal valve was visualized. The cecum, ascending and transverse colon appeared normal. The descending and sigmoid colon there was mild diverticular changes. Scope was then brought back to the rectum this appeared normal. Scope withdrawn from the patient.
[2023-10-03 15:14] VITALS: BP 126/86; PULSE 64
== END 2023-10-03 15:25 ==
LOC: ORWHC2ENDO 11:05
PROVIDERS: ATTEND Surgery
DX: K57.30 Diverticulosis of large intestine without perforation or abscess without bleeding (principal); E78.5 Hyperlipidemia, unspecified; M19.90 Unspecified osteoarthritis, unspecified site; Z87.891 Personal history of nicotine dependence; Z88.0 Allergy status to penicillin; Z79.899 Other long term (current) drug therapy
CPT/HCPCS: 45378; J2001; J2704

== ENCOUNTER → 2024-01-05 | Outpatient (CLI) | payer MEDICARE ==
[~2024-01-05] MED LIST changes: -LACTATED RINGERS 1,000 ML IV SCH; -LIDOCAINE 1% (10MG/ML) FOR IV START INTRADERMA PRN; -ONDANSETRON 4 MG/2 ML VIAL IVP PRN; +REGADENOSON 0.4 MG/5 ML SYRINGE IV ONE
--- NOTE | 2024-01-05 11:36 | CA ---
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 Normal conduction. No arrhythmias. Normal repolarization. Stress ECG: No ECG changes from baseline with Lexiscan infusion. Ventricular premature contraction. CONCLUSIONS No ECG evidence of ischemia with Lexiscan infusion. Nuclear test results to follow. Dr. Xochitl Degroot MD (Electronically Signed) Final Date: 05 January 2024 11:34
--- NOTE | 2024-01-05 11:56 | NM ---
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 The patient received 0.4mg Lexiscan, 25.5 mCi Tc 99m Sestamibi - Stress images obtained [address] injection FINDINGS: Review of stress and rest SPECT images demonstrates fixed perfusion defect involving the inferior wal l of the heart. No discrete reversibility is seen. Gated analysis shows normal wall motion with an es timated left ventricular ejection fraction of 59 %. There is some augmentation of the inferior wall o f the heart. TID is calculated at 0.95, within normal limits. IMPRESSION: Fixed defect involving the inferior wall suspected diaphragmatic attenuation artifact rather than old infarct given some augmentation of this region on gated images. No scintigraphic evidence for rever sible ischemia. [facility], , 01/05/2024 11:53 AM
== END | disposition home or self-care (01) ==
LOC: RADNMMAIN 07:37
PROVIDERS: ATTEND Family Medicine
DX: I25.10 Atherosclerotic heart disease of native coronary artery without angina pectoris (principal)
CPT/HCPCS: 78452; 93017